=== PATIENT | female | born 1940 | race Caucasian/White ===

== ENCOUNTER → 2017-05-25 | Outpatient (CLI) | payer OTHER | LOC: FIMAGING 08:07 | PROVIDERS: ATTEND Internal Medicine | DX: Z12.31 Encounter for screening mammogram for malignant neoplasm of breast (principal) | CPT/HCPCS: G0202 ==

== ENCOUNTER → 2017-08-04 | Outpatient (CLI) | payer OTHER | LOC: FIMAGING 11:48 | PROVIDERS: ATTEND Internal Medicine | DX: R92.0 Mammographic microcalcification found on diagnostic imaging of breast (principal); Z80.3 Family history of malignant neoplasm of breast | CPT/HCPCS: G0206 ==

== ENCOUNTER → 2017-08-25 | Day surgery (SDC) | payer OTHER ==
[~2017-08-25] MED LIST: BUPIVACAINE 0.5% 10 ML SDV ONE; LIDO/EPI 1% **Not for Epidural 20 ML MDV ONE; LIDOCAINE 1% 300 MG/30 ML SDV ONE; THROMBIN (BOVINE) 5,000 UNIT VIAL TP ONE
== END | disposition home or self-care (01) ==
LOC: FIMAGING 07:14
PROVIDERS: ATTEND Surgery
PROC: 0HBT3ZX Excision of Right Breast, Percutaneous Approach, Diagnostic (ICD-10-PCS; principal; 2017-08-25)
PROC: BH00ZZZ Plain Radiography of Right Breast (ICD-10-PCS; principal; 2017-08-25)
DX: D24.1 Benign neoplasm of right breast (principal); N60.11 Diffuse cystic mastopathy of right breast; R92.0 Mammographic microcalcification found on diagnostic imaging of breast
CPT/HCPCS: G0206

== ENCOUNTER → 2018-03-23 | Outpatient (CLI) | payer OTHER | LOC: BMCIMAGING 10:18 | PROVIDERS: ATTEND Internal Medicine | DX: R92.0 Mammographic microcalcification found on diagnostic imaging of breast (principal) ==

== ENCOUNTER → 2018-05-26 | Outpatient (CLI) | payer OTHER | LOC: BMCIMAGING 13:03 | PROVIDERS: ATTEND Internal Medicine | DX: Z12.31 Encounter for screening mammogram for malignant neoplasm of breast (principal) ==

== ENCOUNTER 2018-11-28 16:35 | Inpatient (IN) | payer OTHER ==
[2018-11-28] MEDS ORDERED: NS 1,000 ML IV ONE (16:57)
--- NOTE | 2018-11-28 17:01 | EDPHY ---
H & P Stated Complaint: AMS, WEAKNESS Time Seen by Provider: 11/28/18 17:00 HPI/ROS: HPI CHIEF COMPLAINT: Acute onset of confusion. Now resolved. HISTORY OF PRESENT ILLNESS: 78-year-old female, history of AFib on Coumadin as well as aortic valve, presents emergency room with altered mental status now resolved. The patient was in [place] going to watch show with 1 of her friends and during the ride to [place] she became chilled and described as shaking with confusion. 911 EMS was called in [place] she was evaluated by [place] paramedics and the son was contacted she did not get transported to a local hospital the friend decided to take her back home. She arrived back home, where she had multiple episodes of being slumped over and minimally to unresponsive. No loss of pulse. Past Medical History: AFib on Coumadin. Cognitive decline early dementia. Hypertension, hyperlipidemia, GI bleed, anemia Past Surgical History: Aortic valve Social History: No drugs alcohol tobacco. Daughter at bedside is an ER physician. Family History: Noncontributory ROS REVIEW OF SYSTEMS: Somewhat limited due to underlying dementia. Exam Constitutional well-appearing, nontoxic triage nursing summary reviewed, vital signs reviewed, awake/alert. Eyes normal conjunctivae and sclera, EOMI, PERRLA. HENT normal inspection, atraumatic, moist mucus membranes, no epistaxis, neck supple/ no meningismus, no raccoon eyes. Respiratory clear to auscultation bilaterally, normal breath sounds, no respiratory distress, no wheezing. Cardiovascular rate normal, regular rhythm, no murmur, no edema, distal pulses normal. Gastrointestinal soft, non-tender, no rebound, no guarding, normal bowel sounds, no distension, no pulsatile mass. Genitourinary no CVA tenderness. Musculoskeletal no midline vertebral tenderness, full range of motion, no calf swelling, no tenderness of extremities, no meningismus, good pulses, neurovascularly intact. Skin pink, warm, & dry, no rash, skin atraumatic. Neurologic she is not confused here, awake, alert and oriented x 3, AAOx3, moves all 4 extremities equally, motor intact, sensory intact, CN II-XII intact , normal cerebellar, normal vision, normal speech. Psychiatric normal mood/affect. Heme/Lymph/Immune no lymphadenopathy. Differential Diagnosis: Includes but is not limited to and in no particular order: CVA intracranial bleed, stroke, TIA, dehydration, electrolyte disturbance, infection, bacteremia, UTI, pneumonia Medical Decision Making: Plan for this patient IV establishment blood draw, EKG , chest x-ray, CT scan head without contrast, troponin, UA and re-evaluate. Re-evaluation: EKG interpretation by me on record in [facility] [employer] system. Impression time of EKG 1736, AFib rate of 104 Q-waves to [address] elevation. Q-waves throughout V1 V2 V3. CT scan head without contrast negative for acute bleed called to me by Dr. Marroquin. Chest x-ray reviewed. Cardiomegaly. No focal pneumonia. Plan for admission. Patient possibly was having rigors versus TIA episode. Blood cultures have been pulled due to her having a mechanical valve. She is not febrile. She is not toxic She agrees for hospital admission. The daughter at bedside is comfortable with admission. No source of infection at this time. She does have an elevated white blood cell count. She is afebrile here nontoxic appearing Troponin noted to be positive patient does not have any chest pain. BNP slightly elevated. Chest x-ray cardiomegaly but no failure CT scan of the head is unremarkable Plan for hospital admission for observation overnight Dr. Connell Consulted. Source: Patient, Family, EMS - Personal History Current Tetanus/Diphtheria Vaccine: Unsure Tetanus Vaccine Date: 2003 - Medical/Surgical History Hx Asthma: No Hx Chronic Respiratory Disease: No Hx Diabetes: No Hx Cardiac Disease: No Hx Renal Disease: No Hx Cirrhosis: No Hx Alcoholism: No Hx HIV/AIDS: No Hx Splenectomy or Spleen Trauma: No Other PMH: med hx-artificial valve,aortic arch aneurysm initially placed stent, . surg-appy,implants-breast,aorta. DEMENTIA, AFIB - Social History Smoking Status: Former smoker Constitutional: Initial Vital Signs Temperature (C) 37.1 C 11/28/18 16:43 Heart Rate 104 H 11/28/18 16:43 Respiratory Rate 16 11/28/18 16:43 Blood Pressure 106/91 H 11/28/18 16:43 O2 Sat (%) 94 11/28/18 16:43 O2 Delivery Mode Nasal Cannula O2 (L/minute) 2 Allergies/Adverse Reactions: phenobarbital [Phenobarbital] Allergy (Verified 10/26/15 19:18) Home Medications: Medication Instructions Recorded Levothyroxine [Synthroid 100 mcg 100 mcg PO Q2D@08/04/12 (*)] Levothyroxine [Synthroid 88 mcg 88 mcg PO Q2D@08/04/12 (*)] Losartan Potassium [Cozaar 50 mg 25 mg PO DAILY 08/04/12 (*)] Nebivolol HCl [Bystolic] 1.25 mg PO DAILY 10/27/15 Estradiol [Estrace] 0.5 mg PO DAILY 11/28/18 Furosemide [Lasix 20 MG (*)] 60 mg PO DAILY 11/28/18 Memantine HCl [Namenda 10 mg] 10 mg PO BID 11/28/18 Potassium Cl [Klor-Con 20 meq (*)] 20 meq PO DAILY 11/28/18 Warfarin Sodium [Coumadin 3MG (*)] 3 mg PO SUTUTHSA@20 11/28/18 Warfarin Sodium [Coumadin 3MG (*)] 4.5 mg PO MOWEFR@20 11/28/18 Medical Decision Making - Data Points Laboratory Results: Laboratory Results 11/28/18 16:50 11/28/18 16:50 Medications Given: Estradiol (Estradiol) 0.5 mg PO DAILY [facility] Stop: 05/28/19 08:59 Last Admin: 11/29/18 14:01 Dose: 0.5 mg Piperacillin/Tazobactam/Dextrose (Zosyn 3.375 Gm (Premix)) 50 mls @ 100 mls/hr IV 0300,0900,1500,2100 [facility] Stop: 12/29/18 14:59 Last Admin: 11/29/18 20:35 Dose: 50 mls Sodium Chloride (Ns) 1,000 mls @ 75 mls/hr IV CONT [facility]VIN Stop: 05/28/19 15:44 Last Admin: 11/29/18 15:49 Dose: 1,000 mls Levothyroxine Sodium (Synthroid) 88 mcg PO Q2D@06 [facility]VIN Stop: 05/28/19 05:59 Last Admin: 11/29/18 05:42 Dose: 88 mcg Memantine (Namenda) 10 mg PO BID [facility]VIN Stop: 05/27/19 20:59 Last Admin: 11/29/18 20:35 Dose: 10 mg Warfarin Sodium (Coumadin) 3 mg PO SUTUTHSA@20 [facility]VIN Stop: 05/27/19 20:29 Last Admin: 11/28/18 21:13 Dose: 3 mg Warfarin Sodium (Coumadin) 4.5 mg PO MOWEFR@20 [facility]VIN Stop: 05/28/19 19:59 Last Admin: 11/29/18 20:35 Dose: 4.5 mg Discontinued Medications Sodium Chloride (Ns) 1,000 mls @ 0 mls/hr IV EDNOW ONE; Wide Open PRN Reason: Protocol Stop: 11/28/18 16:58 Last Admin: 11/28/18 17:00 Dose: 1,000 mls Sodium Chloride (Ns) 1,000 mls @ 75 mls/hr IV CONT MALVIN Stop: 11/29/18 09:19 Last Admin: 11/28/18 21:00 Dose: 1,000 mls Piperacillin/Tazobactam/Dextrose (Zosyn 3.375 Gm (Premix)) 50 mls @ 100 mls/hr IV ONCE ONE PRN Reason: Protocol Stop: 11/29/18 08:46 Last Admin: 11/29/18 08:50 Dose: 50 mls Point of Care Test Results: Chemistry 11/28/18 17:11 POC Troponin I 0.11 ng/mL H ng/mL (0.00-0.08) Departure - Departure Disposition: [facility] Acute Clinical Impression: Elevated troponin Altered mental status Qualifiers: Altered mental status type: transient alteration of awareness Qualified Code(s) : R40.4 - Transient alteration of awareness Condition: Fair
[2018-11-28 17:09] LABS: PLATELET COUNT 142 10^3/uL (150-400)
[2018-11-28 17:18] LABS: INR 2.72 (0.83-1.16); PROTIME(PATIENT) 28.8 SEC (12.0-15.0)
[2018-11-28] MEDS ORDERED: ACETAMINOPHEN 325 MG TAB PO PRN (19:25)
[2018-11-28] MEDS ORDERED: ONDANSETRON 4 MG/2 ML VIAL IVP PRN (19:25)
[2018-11-28] MEDS ORDERED: NS 1,000 ML IV SCH (20:00)
[2018-11-28] MEDS: MEMANTINE HCL 5 MG TAB PO SCH (21:12)
[2018-11-28] MEDS: WARFARIN SODIUM 3 MG TAB PO SCH (21:13)
--- NOTE | 2018-11-28 21:31 | GHP ---
DATE OF ADMISSION: 11/28/2018 CHIEF COMPLAINT: Acute encephalopathy, now resolved, leukocytosis. HISTORY OF PRESENT ILLNESS: An 78-year-old female with history of atrial fibrillation on Coumadin, mechanical aortic valve, presents to the ER after being altered earlier today. She was a passenger driving to [place] to watch a show with one of her friends. During the ride, she complained of being very chilled, and friend described her as shaking and confused. EMS was called in [place]. She was evaluated by paramedics. Someone was contacted. This friend decided to take her back home. When she was at home with family, she had multiple episodes of being slumped over but would arouse when shaked. She was alert to person and place but not to time. She does have mild dementia but would normally know the year. Denies fevers, sweats. No nausea, vomiting, diarrhea, dysuria. No chest pain or shortness of breath. No dizziness. No urinary incontinence. Her daughter is an ER physician at bedside giving some of the history. REVIEW OF SYSTEMS: I completed a 10-point review of systems, negative except as in HPI. PAST MEDICAL HISTORY: 1. Atrial fibrillation on Coumadin. 2. Early dementia. 3. Hypertension. 4. Hyperlipidemia. 5. Hypothyroidism. 6. History of diverticulosis. 7. Mechanical aortic valve. 8. Cervical stenosis. PAST SURGICAL HISTORY: Aortic valve replacement 2003. FAMILY HISTORY: CAD. SOCIAL HISTORY: Lives here in [place]. No illicits, alcohol, or tobacco. ALLERGIES: Phenobarb. HOME MEDICATIONS: Coumadin 4 mg daily, omega-3, Bystolic 2.5 mg daily, losartan 50 mg daily, Synthroid 188 mcg every 2 days, hydrochlorothiazide 12.5, Premarin. PHYSICAL EXAMINATION: VITAL SIGNS: Temperature 36.7, blood pressure 103/78, heart rate 90-105, respirations 16, 95% on 2 L. GENERAL: She appears fatigued , pale in no acute distress. HEENT: PERRLA. Dry mucous membranes. Oropharynx clear. No exudate or erythema. CV: Irregularly irregular rate. No murmurs, gallops, or rubs. No lower extremity edema. LUNGS: Clear. No crackles or rhonchi. NEURO: 2-12 intact. PSYCHIATRIC: She is alert and oriented to place, month, not exact date. LABS: Sodium 133, potassium 4.1, chloride 107, carbon dioxide 19, creatinine 1 , glucose 111, calcium 8.8, total bilirubin 1.5, conjugated 0.6. BNP is 1440 ( last 1170). Troponin 0.11. Lactate 2.6. Repeat 1.5. INR is 2.72. Urine: Trace protein. TEST DATA: EKG: Atrial fibrillation, inferior infarct seen on old head CT, no acute intracranial findings. IMAGING DATA: Chest x-ray is personally reviewed by me. Sternotomy wires. No overt opacity or effusion. ASSESSMENT AND PLAN: 1. Acute encephalopathy: possibly due to infection with history described as rigors and elevated WBC. Now afebrile. Normal CXR, UA. Blood culture to rule out endocarditis given mechanical valve. Will hold off on antibiotics. 2. Leukocytosis: eval as stated above. 3. Hypovolemic hyponatremia: Mildly dry on exam. Gentle IV fluids. Hold diuretics. 4. Hypothyroidism: levothyroxine. 5. Hypertension: Hold antihypertensive with soft blood pressures. 6. Aortic mechanical valve: INR is at goal. Will repeat in the morning. 7. Diet: Regular. 8. Indeterminate troponin: Elevated at 0.11. No ischemic EKG changes. Asymptomatic. Will repeat and monitor on telemetry. Can evaluate with echo in morning for WMA if trends up. 9. Deep venous thrombosis prophylaxis: Coumadin. DISPOSITION: Warrants observation admission given indeterminate troponin, warranting repeat and telemetry. /[id number]/MODL MTDD
--- NOTE | 2018-11-29 00:13 | CPEKG ---
Test Reason : OPEN Blood Pressure : / mmHG Vent. Rate : 104 BPM Atrial Rate : 000 BPM P-R Int : 144 ms QRS Dur : 096 ms QT Int : 348 ms P-R-T Axes : 000 -83 091 degrees QTc Int : 458 ms Atrial fibrillation Inferior infarct, old Probable anterior infarct, age indeterminate Confirmed by Drake Barlow ([id number]) on 11/29/2018 12:13:03 AM Referred By: Confirmed By:Drake Barlow
[2018-11-29 04:40] LABS: INR 2.6 (0.83-1.16); PROTIME(PATIENT) 27.8 SEC (12.0-15.0)
[2018-11-29 04:48] LABS: PLATELET COUNT 134 10^3/uL (150-400)
[2018-11-29] MEDS: LEVOTHYROXINE 88 MCG TAB PO SCH (05:42)
[2018-11-29] MEDS ORDERED: PIPERACILLIN/TAZO 3.375 GM/DEX 50 ML IV ONE (08:17)
[2018-11-29] MEDS: MEMANTINE HCL 5 MG TAB PO SCH ×2 (14:01→20:35)
[2018-11-29] MEDS: ESTRADIOL 0.5 MG TAB PO SCH (14:01)
--- NOTE | 2018-11-29 14:59 | ASMTCMCOM ---
CM Note CM Note Notes: Pt is a 78 yo F presented with acute encephalopathy and leukocytosis. Labs found e-coli in urine. ID consulted and PT recommending SNF. OT eval pending. D/C needs TBD at this time. CM to follow. Plan: TBD likely, SNF. Date Signed: 11/29/2018 02:58 PM Electronically Signed By:FREDA Song
[2018-11-29] MEDS ORDERED: NS 1,000 ML IV SCH (15:45)
[2018-11-29] MEDS: PIPERACILLIN/TAZO 3.375 GM/DEX 50 ML IV SCH ×2 (15:46→20:35)
--- NOTE | 2018-11-29 16:15 | ASMTCMCOM ---
CM Note CM Note Notes: CM met with pt and her daughter, Ivy. CM provided education about pt's baseline and her concerns of being discharged home. Ivy reports she manages pt's medications and is her primary caregiver but doesn't live with her. She reports at baseline pt is independent but is getting more and more forgetful and doing "strange" things around the house. Ivy reports that she found medications that pt was hiding and not taking recently and is concerned about her returning to home. Ivy reports her mom has toured [facility] in the past but did not like the assisted living portion. CM provided education about other AL in the area and referred to list in [facility] [employer] [facility]. Ivy is going to tour more facilities. CM provided education on SNF and was agreeable to referral to [facility]. CM submit referral. Plan: [facility] SNF. Date Signed: 11/29/2018 04:14 PM Electronically Signed By:FREDA Song
--- NOTE | 2018-11-29 16:24 | HOSPPROG ---
Hospitalist Progress Note Assessment/Plan: E coli bacteremia-source unclear at this point. I reviewed the chest x-ray which shows no explanation for this finding. She does have a substantial leukocytosis which worsened over night. Vitals remained stable and exam is reassuring. I discussed the case with the infectious disease physician who recommended continuing Zosyn and obtaining CT of the abdomen and pelvis. Urinalysis shows no obvious urinary tract infection. -monitor cultures -continue Zosyn -CT abdomen and pelvis pending -infectious Disease consult. I appreciate the help Acute metabolic encephalopathy- resolved. Etiology may have been secondary to dehydration, hyponatremia or infection. Reviewed the CT of her head which shows no acute intracranial abnormality. Elevated troponin- troponin peaked at 0.13 and is now down trending. No evidence of ischemia on EKG. Continue to monitor on telemetry Atrial fibrillation on Coumadin- INR this morning is 2.6. I reviewed her telemetry and I find no evidence of AFib with RVR. She takes Bystolic normally at home but this is being held due to low pressures. Restart as pressures normalize or as rate climbs -continue Coumadin with goal INR 2-3 -monitor on telemetry -restart Bystolic as needed Hypertension- takes losartan and Bystolic at home but this is being held due to her mild hypotension. Hypothyroid- takes Synthroid 188 mcg. Continue while here. Mechanical aortic valve- on Coumadin. INR 2.6 Prophylaxis-SCDs Coumadin Fluids-intravenous saline Electrolytes-within normal limits Nutrition-regular diet Code status-full code Dispo-will need to change for inpatient for E coli bacteremia Subjective: Feels much better this morning. Denies any dysuria abdominal pain diarrhea or other symptoms. Objective: Vital Signs Temp Pulse Resp BP Pulse Ox 37.8 C 86 17 108/56 L 97 11/29/18 15:50 11/29/18 15:50 11/29/18 15:50 11/29/18 15:50 11/29/18 15:50 Microbiology 11/28/18 19:33 Blood Panel (PCR) - Final Blood Escherichia Coli 11/28/18 20:00 Respiratory Panel (PCR) - Final Nasal, Sinus - Anaerobic Tube/Swab No Organism Detected By Pcr Laboratory Results 11/29/18 04:04 11/29/18 04:04 11/28/18 11/29/18 11/30/18 05:59 05:59 05:59 Intake Total 1250 Output Total 200 Balance 1050 PT 27.8 SEC (12.0-15.0) H 11/29/18 04:04 INR 2.60 (0.83-1.16) H 11/29/18 04:04 - Time Spent With Patient Time Spent with Patient: greater than 35 minutes Time Spent with Patient: Greater than 35 minutes spent on this patients care, greater than 50% of time spent counseling, educating, and coordinating care regarding the above mentioned plan. - Physical Exam Constitutional: no apparent distress, appears nourished, not in pain Eyes: PERRL, anicteric sclera, EOMI Ears, Nose, Mouth, Throat: moist mucous membranes, hearing normal, ears appear normal, no oral mucosal ulcers Cardiovascular: regular rate and rhythym, no murmur, rub, or gallop Respiratory: no respiratory distress, no rales or rhonchi, clear to auscultation Gastrointestinal: normoactive bowel sounds, soft, non-tender abdomen, no palpable masses Genitourinary: no bladder fullness, no bladder tenderness, no renal bruits Skin: no rashes or abrasions, no fluctuance, no induration Musculoskeletal: full muscle strength, no muscle tenderness, normal joint ROM Neurologic: AAOx3, sensation intact bilaterally Psychiatric: interacting appropriately, not anxious, not encephalopathic, thought process linear Lymph, Heme, Immunologic: no cervical LAD, no supraclavicular LAD ICD10 Worksheet Patient Problems: Problems Problem Status Onset Altered mental status Acute Elevated troponin Acute GI bleed Acute Warfarin-induced coagulopathy Acute Aortic valve replaced Chronic Atrial fibrillation Chronic
--- NOTE | 2018-11-29 16:33 | GCON ---
REFERRING PHYSICIAN: Jose Alejandro Quinones MD REASON FOR REFERRAL: E coli sepsis. HISTORY OF PRESENT ILLNESS: Patient is an 78-year-old female in a normal state of good health on the day of admission 11/28/18, when she was traveling with friends from [place] to [place] to see an arts presentation. She became ill suddenly on her way to the presentation and went instead to [facility] Emergency Room. Patient reported sudden onset of chills and confusion. Patient was w orked up in the emergency room and found to have a significant leukocytosis to 15,000. She was start ed empirically on Zosyn monotherapy. Blood cultures drawn in the ER are growing 2/2 sets positive fo r E coli, identified by PCR panel. Patient's urinary tract workup shows no pyuria. She has no abdom inal pain. Currently, she is resting comfortably in her hospital room. She states she feels back to normal. Denies any gastrointestinal complaints. No nausea or vomiting. Denies any urinary complai nts. States that in the days prior to her admission, she was feeling fine. PAST MEDICAL HISTORY: 1. Atrial fibrillation. 2. Early dementia. 3. Hypertension. 4. Hyperlipidemia. 5. Hypothyroidism. 6. Diverticulosis. 7. Cervical stenosis. PAST SURGICAL HISTORY: Status post aortic valve replacement with mechanical valve. ANTIBIOTICS: Zosyn. ALLERGIES: Patient is allergic to phenobarbital. SOCIAL HISTORY: Patient lives in [place]. No significant tobacco, alcohol, or drug use. FAMILY HISTORY: Reviewed but noncontributory. REVIEW OF SYSTEMS: Other than that detailed above in the History of Present Illness, a comprehensive 10-system review is negative. PHYSICAL EXAMINATION: VITAL SIGNS: Temperature maximum is 37.5, temperature current 36.7, heart rat e is 66, respiratory rate is 12, blood pressure is 102/58. GENERAL: Patient is a well-formed, well- nourished, elderly female, in no acute distress. She is not toxic in appearance. She is alert and o riented x3. She has a pleasant demeanor. HEENT: Normocephalic for age. Atraumatic. No scleral ic terus. No oral lesion or drainage from the nares. Eyes, lids and conjunctivae are within normal merlos its. Pupils are equal and round bilaterally. NECK: Supple. No meningismus. LUNGS: Clear to ausc ultation bilaterally with good effort. HEART: Regular rate and rhythm. Mechanical click. ABDOMEN: Soft, nontender, no masses. SKIN: Warm and dry to the touch. No rash or lesions seen. MUSCULOSK ELETAL: No muscle belly tenderness is noted. No joint line effusion or arthritis seen. NEURO: Milling Machine Operator nial nerves 2-12 seem to be intact. Peripheral sensation seems intact in extremities. LABORATORY DATA: Patient has a CBC dated 11/29/18, shows a white blood cell count of 23.9, hemoglobi n of 12.7, hematocrit of 38.5, and a platelet count of 134, differential is left-shifted with 89% seg mented neutrophils. Serum chemistries on 11/29/18, show sodium of 135, potassium 3.8, chloride of 108, bicarbonate of 23, BUN of 20, and creatinine 0.9. AST is 31, ALT is 30. Urinalysis shows trace protein, trace ketones, 0-1 white blood cell per high-power field. MICROBIOLOGIC DATA: Patient has blood cultures dated 11/28/18, 2/2 sets growing a gram-negative michael, identified by [facility]. BC ID panel is E coli. RADIOLOGIC DATA: Patient has a head CT dated 11/28/18, which shows no acute intracranial findings. This was done without contrast. Chest x-ray from 11/28/18, shows no acute findings in the chest. ASSESSMENT: Escherichia coli bacteremia unclear source. Due to the patient not having any evidence on her urinalysis of inflammation, I suggest that we do imaging of her abdomen and pelvis despite the fact she has no localized symptoms. Another concern would be an odd gram-negative endocarditis on h er artificial valve. Going against this is the fact the valve is over 15 years old. In any event, e chocardiogram would probably get a lot of artifact and shading from the mechanical valve, and it is u nclear whether this would be helpful. If nothing is found in the abdominal and pelvic CT, I think we should look at this. Should redraw blood cultures tomorrow to document clearance. At present, we w ill continue on the empiric Zosyn monotherapy and adjust given sensitivity panels forthcoming. PLAN: 1. Continue Zosyn at present dose. 2. Follow clinical course. Follow fever curve. 3. Follow up on blood culture confirmation and sensitivity panel. 4. CT abdomen and pelvis. /[id number]/MODL
[2018-11-29] MEDS ORDERED: IOPAMIDOL (ISOVUE 370) 100 ML BTL IV ONE (17:14)
[2018-11-29] MEDS ORDERED: PIPERACILLIN/TAZO 2.25 GM/DEX 50 ML IV SCH (18:00)
[2018-11-29] MEDS: WARFARIN SODIUM 3 MG TAB PO SCH (20:35)
[2018-11-30] MEDS: PIPERACILLIN/TAZO 3.375 GM/DEX 50 ML IV SCH ×4 (03:03→21:17)
[2018-11-30] MEDS: LEVOTHYROXINE 88 MCG TAB PO SCH (03:07)
[2018-11-30 05:03] LABS: PLATELET COUNT 102 10^3/uL (150-400)
[2018-11-30] MEDS: LEVOTHYROXINE 100 MCG TAB PO SCH (05:35)
--- NOTE | 2018-11-30 06:40 | PDMN ---
Medical Necessity Medical necessity: Pt meets IP criteria as of 11/29/2017 per and MCG M-160 ( Sepsis and other febrile illness, without focal infection); los > 2 mn for ongoing tx and management of E. Coli Bacteremia.
[2018-11-30] MEDS ORDERED: POTASSIUM CL 20 MEQ TAB PO ONE (08:37)
[2018-11-30] MEDS: MEMANTINE HCL 5 MG TAB PO SCH ×2 (09:28→21:16)
[2018-11-30] MEDS: ESTRADIOL 0.5 MG TAB PO SCH (09:28)
--- NOTE | 2018-11-30 13:34 | HOSPPROG ---
Hospitalist Progress Note Assessment/Plan: E coli bacteremia-source unclear at this point. CT A/P reviewed by myself with no source or abnormality. I discussed with ID today, who wants a repeat culture , then plan to await culture data and likely julien. -monitor cultures -continue Zosyn -infectious Disease consult. I appreciate the help Acute metabolic encephalopathy- resolved. Etiology may have been secondary to dehydration, hyponatremia or infection. Reviewed the CT of her head which shows no acute intracranial abnormality. Elevated troponin- troponin peaked at 0.13 and is now down trending. No evidence of ischemia on EKG. Continue to monitor on telemetry Atrial fibrillation on Coumadin- INR this morning is 2.6. I reviewed her telemetry and I find no evidence of AFib with RVR. She takes Bystolic normally at home but this is being held due to low pressures. Restart as pressures normalize or as rate climbs -continue Coumadin with goal INR 2-3 -monitor on telemetry -restart Bystolic as needed Hypertension- takes losartan and Bystolic at home but this is being held due to her mild hypotension. Hypothyroid- takes Synthroid 188 mcg. Continue while here. Mechanical aortic valve- on Coumadin. INR 2.6 Prophylaxis-SCDs Coumadin Fluids-intravenous saline Electrolytes-within normal limits Nutrition-regular diet Code status-full code Dispo-inpatient for e coli bacteremia. May be able to dc in next 1-2 days depending on culture data. Subjective: feels fine today. not much appetite. otherwise no nv, fevers chills or other symptoms. Objective: Vital Signs Temp Pulse Resp BP Pulse Ox 37.4 C 77 18 113/67 93 11/30/18 12:00 11/30/18 12:00 11/30/18 12:00 11/30/18 12:00 11/30/18 12:00 Laboratory Results 11/30/18 03:08 11/30/18 03:08 11/29/18 11/30/18 12/01/18 05:59 05:59 05:59 Intake Total 2725 Output Total 801 Balance 1924 PT 27.8 SEC (12.0-15.0) H 11/29/18 04:04 INR 2.60 (0.83-1.16) H 11/29/18 04:04 - Physical Exam Constitutional: no apparent distress, appears nourished, not in pain Eyes: PERRL, anicteric sclera, EOMI Ears, Nose, Mouth, Throat: moist mucous membranes, hearing normal, ears appear normal, no oral mucosal ulcers Cardiovascular: regular rate and rhythym, no murmur, rub, or gallop Respiratory: no respiratory distress, no rales or rhonchi, clear to auscultation Gastrointestinal: normoactive bowel sounds, soft, non-tender abdomen, no palpable masses Genitourinary: no bladder fullness, no bladder tenderness, no renal bruits Skin: no rashes or abrasions, no fluctuance, no induration Musculoskeletal: full muscle strength, no muscle tenderness, normal joint ROM Neurologic: AAOx3, sensation intact bilaterally Psychiatric: interacting appropriately, not anxious, not encephalopathic, thought process linear Lymph, Heme, Immunologic: no cervical LAD, no supraclavicular LAD ICD10 Worksheet Patient Problems: Problems Problem Status Onset Altered mental status Acute Elevated troponin Acute GI bleed Acute Warfarin-induced coagulopathy Acute Aortic valve replaced Chronic Atrial fibrillation Chronic
--- NOTE | 2018-11-30 14:27 | PCMIDPN ---
Assessment/Plan: # E coli bacteremia, unclear source, improved on Zosyn. WBC improved. CT negative. UA negative --awaiting sensi, hopeful for ceftriaxone to complete therapy. Discussed FQ but probably not worth risk in this instance --due to presence of prosthetic valve would repeat blood cx in this instance --plan 10 days of therapy total, 12/08/18 stop date --discussed risk benefits of PICC line, contemplated trying PIVs at SNF but left open; re-address tomorrow meds Zosyn 3.375gm IV q6h #2 Microbiology 11/28/18 19:33 Blood Blood Panel (PCR) - Final Escherichia Coli 11/28/18 19:33 Blood Blood Culture - Preliminary 11/28/18 19:33 Blood Gram Neg Shay Lactose Com Writer Subjective: feeling much better but still fairly weak Daughter at bedside, ER doctor Objective: Vital Signs Temp Pulse Resp BP Pulse Ox 37.4 C 77 18 113/67 93 11/30/18 12:00 11/30/18 12:00 11/30/18 12:00 11/30/18 12:00 11/30/18 12:00 Laboratory Results 11/30/18 03:08 11/30/18 03:08 11/29/18 11/30/18 12/01/18 05:59 05:59 05:59 Intake Total 2725 Output Total 801 Balance 1924 - Physical Exam General Appearance: alert, no apparent distress, other (appears younger than stated age) EENT: No thrush Respiratory: lungs clear, No accessory muscle use Neck: supple Cardiac/Chest: regular rate, rhythm Extremities: No pedal edema Abdomen: normal bowel sounds, non-tender, soft Skin: No rash Neuro/Psych: alert, normal mood/affect, oriented x 3 - Time Spent With Patient Time Spent with Patient: greater than 35 minutes (reviewed risk benefits IV abx , FQ, PICC line placement) Time Spent with Patient: Greater than 35 minutes spent on this patients care, greater than 50% of time spent counseling, educating, and coordinating care regarding the above mentioned plan. ICD10 Worksheet Patient Problems: Problems Problem Status Onset Altered mental status Acute Elevated troponin Acute GI bleed Acute Warfarin-induced coagulopathy Acute Aortic valve replaced Chronic Atrial fibrillation Chronic
[2018-11-30] MEDS: WARFARIN SODIUM 3 MG TAB PO SCH (21:17)
[2018-12-01] MEDS: LEVOTHYROXINE 88 MCG TAB PO SCH (03:25)
[2018-12-01] MEDS: PIPERACILLIN/TAZO 3.375 GM/DEX 50 ML IV SCH ×2 (03:25→08:23)
[2018-12-01 04:38] LABS: PLATELET COUNT 102 10^3/uL (150-400)
[2018-12-01] MEDS: ESTRADIOL 0.5 MG TAB PO SCH (08:16)
[2018-12-01] MEDS: MEMANTINE HCL 5 MG TAB PO SCH ×2 (08:16→20:33)
--- NOTE | 2018-12-01 09:10 | PCMIDPN ---
Assessment/Plan: # E coli bacteremia, unclear source. CT negative. UA negative. Patient better today, WBC trending down --due to presence of prosthetic valve, blood cultures were repeated --ceftriaxone plan 10 days of therapy total, 12/08/18 stop date. If leaves half-way facility prior to completion of antibiotics, patient will complete therapy in infusion center. Feel FQ therapy to high risk in this patient --[facility] is okay utilizing peripheral IV. Long discussion with patient and her daughter (over the phone) regarding not safe to send patient home alone ( she normally lives independently alone), therefore only option is half-way facility. Patient remains very reluctant with this option but daughter will continue to discuss with patient. I coordinated care with physical therapy and Case Management. Daughter will be on the floor between noon and 1 --agree w INR check in AM meds Zosyn 3.375gm IV q6h #3 coumadin Microbiology 11/28/18 Blood cx (2/): Escherichia Coli only R to amp, amp/sulb 11/30/18 blood cultures (2) pending Subjective: Patient describes generalized weakness, no diarrhea, abdominal pain or other specific pain Objective: Vital Signs Temp Pulse Resp BP Pulse Ox 37.0 C 84 19 133/79 H 92 12/01/18 07:29 12/01/18 07:29 12/01/18 07:29 12/01/18 07:29 12/01/18 07:29 Laboratory Results 12/01/18 03:05 12/01/18 03:05 11/30/18 12/01/18 12/02/18 05:59 05:59 05:59 Intake Total 2725 600 Output Total 801 550 100 Balance 1924 50 -100 - Physical Exam General Appearance: alert, no apparent distress Respiratory: lungs clear, No accessory muscle use Neck: supple Cardiac/Chest: regular rate, rhythm, systolic murmur (faint w mechanical click) Abdomen: normal bowel sounds, non-tender, soft, No distended Skin: pallor, No rash Neuro/Psych: alert, normal mood/affect - Line/s PIV Lines: other (Right forearm), No drainage, No erythema - Time Spent With Patient Time Spent with Patient: greater than 35 minutes Time Spent with Patient: Greater than 35 minutes spent on this patients care, greater than 50% of time spent counseling, educating, and coordinating care regarding the above mentioned plan. ICD10 Worksheet Patient Problems: Problems Problem Status Onset Altered mental status Acute Elevated troponin Acute GI bleed Acute Warfarin-induced coagulopathy Acute Aortic valve replaced Chronic Atrial fibrillation Chronic
--- NOTE | 2018-12-01 09:26 | PDIAF ---
- Diagnosis Diagnosis: E coli bactermia Code Status: Full Code - Medication Management Manager [facility] Antibiotics: ceftriaxone 1gm IV daily [facility] Antibiotic Stop Date: 12/08/18 Discharge Medications: electronically signed and located in the Home Medication List. PICC Care - Routine: N/A (PIV per protocol) - Orders Isolation Type: None - Labs/Radiology CBC w/diff Date: 12/06/18 CMP Date: 12/06/18 - Follow Up Care Current Providers and Referrals: Patient,NotPresent [Unknown] - As per Instructions
[2018-12-01] MEDS: NEBIVOLOL HCL 5 MG TAB PO SCH (10:39)
[2018-12-01] MEDS ORDERED: FUROSEMIDE 20 MG TAB PO ONE (13:55)
--- NOTE | 2018-12-01 13:55 | HOSPPROG ---
Hospitalist Progress Note Assessment/Plan: E coli bacteremia-source unclear at this point. CT A/P reviewed by myself with no source or abnormality. -ID following -BCX 11/28: Ecoli -BCX 11/30: NGTD, pending -Zosyn changed to Rocephin, will need abx through Dec 08 Cough: -one time Lasix today Acute metabolic encephalopathy- resolved. Etiology may have been secondary to dehydration, hyponatremia or infection. Reviewed the CT of her head which shows no acute intracranial abnormality. Elevated troponin- troponin peaked at 0.13 and is now down trending. No evidence of ischemia on EKG. Continue to monitor on telemetry Atrial fibrillation on Coumadin -Went into Afib this morning -will restart Bystolic -Cont Coumadin, recheck INR in a.m Hypertension- -cont to hold Losartan -cont Bystolic Hypothyroid- takes Synthroid 188 mcg. Continue while here. Mechanical aortic valve- on Coumadin. INR 2.6 Prophylaxis-SCDs Coumadin Fluids-intravenous saline Electrolytes-within normal limits Nutrition-regular diet Code status-full code Dispo-inpatient for e coli bacteremia. consider d/c tomorrow. Subjective: says she feels something is funny in her, doesnt feel herself. Was not aware that she had gone into afib. afebrile. Some cough Objective: Vital Signs Temp Pulse Resp BP Pulse Ox 36.4 C 83 20 135/82 H 95 12/01/18 11:07 12/01/18 11:07 12/01/18 11:07 12/01/18 11:07 12/01/18 11:07 Laboratory Results 12/01/18 03:05 12/01/18 03:05 11/30/18 12/01/18 12/02/18 05:59 05:59 05:59 Intake Total 2725 600 Output Total 801 550 100 Balance 1924 50 -100 PT 27.8 SEC (12.0-15.0) H 11/29/18 04:04 INR 2.60 (0.83-1.16) H 11/29/18 04:04 - Physical Exam Constitutional: no apparent distress Eyes: PERRL, EOMI Ears, Nose, Mouth, Throat: moist mucous membranes, hearing normal Cardiovascular: regular rate and rhythym Respiratory: no respiratory distress, reduced air movement Gastrointestinal: normoactive bowel sounds, soft, non-tender abdomen Skin: warm Neurologic: AAOx3 Psychiatric: interacting appropriately, not anxious, not encephalopathic Lymph, Heme, Immunologic: No petechiae ICD10 Worksheet Patient Problems: Problems Problem Status Onset Altered mental status Acute Elevated troponin Acute GI bleed Acute Warfarin-induced coagulopathy Acute Aortic valve replaced Chronic Atrial fibrillation Chronic
--- NOTE | 2018-12-01 15:11 | ASMTCMCOM ---
CM Note CM Note Notes: CM spoke to Dr. Rubalcava regarding d/c POC. Pt is agreeable to going to SNF. CM notified [facility] to start getting auth. Pt will d/c with peripheral IV and continue ivabx until 12/08. [facility] is ok w/ this. CM met w/ pts daughter and daughter is onboard w/ d/c plan. CM to follow. Plan: [facility] Date Signed: 12/01/2018 03:10 PM Electronically Signed By:FREDA Aguilar
[2018-12-01] MEDS: ONDANSETRON DISINTEGRATING 4 MG TAB PO PRN (17:02)
[2018-12-01] MEDS: WARFARIN SODIUM 3 MG TAB PO SCH (20:33)
[2018-12-02 05:40] LABS: INR 3.24 (0.83-1.16); PROTIME(PATIENT) 32.9 SEC (12.0-15.0)
[2018-12-02 05:44] LABS: PLATELET COUNT 108 10^3/uL (150-400)
[2018-12-02] MEDS: LEVOTHYROXINE 100 MCG TAB PO SCH (05:46)
[2018-12-02] MEDS: NEBIVOLOL HCL 5 MG TAB PO SCH (09:10)
[2018-12-02] MEDS: MEMANTINE HCL 5 MG TAB PO SCH ×2 (09:10→20:52)
[2018-12-02] MEDS: ESTRADIOL 0.5 MG TAB PO SCH (09:14)
[2018-12-02] MEDS: ONDANSETRON DISINTEGRATING 4 MG TAB PO PRN ×2 (10:07→20:54)
--- NOTE | 2018-12-02 11:55 | HOSPPROG ---
Hospitalist Progress Note Assessment/Plan: E coli bacteremia-source unclear at this point. -CT A/P reviewed with no source or abnormality. -ID following -BCX 11/28: Ecoli -BCX 11/30: NGTD -Zosyn changed to Rocephin, will need abx through Dec 08 through PIV Cough: resolved Acute metabolic encephalopathy- resolved. Etiology may have been secondary to dehydration, hyponatremia or infection. Reviewed the CT of her head which shows no acute intracranial abnormality. Elevated troponin- troponin peaked at 0.13. No evidence of ischemia on EKG. Continue to monitor on telemetry Atrial fibrillation on Coumadin -Went into Afib 12/02. She likely is in and out of Afib -cont Bystolic -Cont Coumadin, recheck INR in a.m Hypertension- -cont to hold Losartan -cont Bystolic Hypothyroid- takes Synthroid 188 mcg. Continue while here. Mechanical aortic valve- on Coumadin. INR 3.24, can be rechecked tomorrow -She has been stable on her Coumadin regimen for quite some time Prophylaxis-SCDs Coumadin Fluids-intravenous saline Electrolytes-within normal limits Nutrition-regular diet Code status-full code Dispo-inpatient for e coli bacteremia. consider d/c today vs tomorrow, placement is pending Subjective: feels better. awaiting placement. tele reviewed, still in afib Objective: Vital Signs Temp Pulse Resp BP Pulse Ox 36.8 C 88 18 118/69 91 L 12/02/18 11:25 12/02/18 11:25 12/02/18 11:25 12/02/18 11:25 12/02/18 11:25 Laboratory Results 12/02/18 05:15 12/02/18 05:15 12/01/18 12/02/18 12/03/18 05:59 05:59 05:59 Intake Total 600 1200 480 Output Total 550 100 Balance 50 1100 480 PT 32.9 SEC (12.0-15.0) H 12/02/18 05:15 INR 3.24 (0.83-1.16) H 12/02/18 05:15 - Physical Exam Constitutional: no apparent distress Eyes: PERRL Ears, Nose, Mouth, Throat: moist mucous membranes, hearing normal Cardiovascular: irregularly irregular, No edema Respiratory: no respiratory distress, no rales or rhonchi, clear to auscultation Gastrointestinal: normoactive bowel sounds, soft, non-tender abdomen Skin: warm Neurologic: AAOx3 Psychiatric: interacting appropriately, not anxious, not encephalopathic Lymph, Heme, Immunologic: No petechiae ICD10 Worksheet Patient Problems: Problems Problem Status Onset Altered mental status Acute Elevated troponin Acute GI bleed Acute Warfarin-induced coagulopathy Acute Aortic valve replaced Chronic Atrial fibrillation Chronic
[2018-12-02] MEDS: WARFARIN SODIUM 3 MG TAB PO SCH (20:52)
[2018-12-03 04:47] LABS: INR 3.72 (0.83-1.16); PROTIME(PATIENT) 36.5 SEC (12.0-15.0)
[2018-12-03] MEDS: LEVOTHYROXINE 88 MCG TAB PO SCH (05:47)
[2018-12-03] MEDS: ESTRADIOL 0.5 MG TAB PO SCH (10:23)
[2018-12-03] MEDS: NEBIVOLOL HCL 5 MG TAB PO SCH (10:23)
[2018-12-03] MEDS: MEMANTINE HCL 5 MG TAB PO SCH ×2 (10:25→20:17)
--- NOTE | 2018-12-03 13:06 | HOSPPROG ---
Hospitalist Progress Note Assessment/Plan: E coli bacteremia-source unclear at this point. -CT A/P reviewed with no source or abnormality. -ID following -BCX 11/28: Ecoli -BCX 11/30: NGTD -Zosyn changed to Rocephin, will need abx through Dec 08 through PIV Cough: resolved Acute metabolic encephalopathy- resolved. Etiology may have been secondary to dehydration, hyponatremia or infection. Reviewed the CT of her head which shows no acute intracranial abnormality. Elevated troponin- troponin peaked at 0.13. No evidence of ischemia on EKG. Continue to monitor on telemetry Atrial fibrillation on Coumadin -Went into Afib 12/02. She likely is in and out of Afib -cont Bystolic -Cont Coumadin, pharmacy dosing, slight elevation of INR noted Hypertension- -cont to hold Losartan -cont Bystolic Hypothyroid- takes Synthroid 188 mcg. Continue while here. Mechanical aortic valve- on Coumadin. INR 3.24, can be rechecked tomorrow -She has been stable on her Coumadin regimen for quite some time Prophylaxis-SCDs Coumadin Fluids-intravenous saline Electrolytes-within normal limits Nutrition-regular diet Code status-full code Dispo-inpatient for e coli bacteremia. consider d/c today vs tomorrow, placement is pending. D/W nursing, CM, pharmacy Subjective: feels better. awaiting placement Objective: Vital Signs Temp Pulse Resp BP Pulse Ox 36.6 C 88 18 116/69 93 12/03/18 12:00 12/03/18 12:00 12/03/18 12:00 12/03/18 12:00 12/03/18 12:00 Laboratory Results 12/02/18 05:15 12/02/18 05:15 12/02/18 12/03/18 12/04/18 05:59 05:59 05:59 Intake Total 1200 1360 Output Total 100 Balance 1100 1360 PT 36.5 SEC (12.0-15.0) H 12/03/18 03:10 INR 3.72 (0.83-1.16) H 12/03/18 03:10 - Physical Exam Constitutional: no apparent distress Eyes: PERRL Ears, Nose, Mouth, Throat: moist mucous membranes, hearing normal Cardiovascular: regular rate and rhythym, No edema Respiratory: no respiratory distress, no rales or rhonchi, clear to auscultation Gastrointestinal: normoactive bowel sounds, No guarding, No distension Skin: warm Neurologic: AAOx3 Psychiatric: interacting appropriately, not anxious, not encephalopathic Lymph, Heme, Immunologic: No petechiae ICD10 Worksheet Patient Problems: Problems Problem Status Onset Altered mental status Acute Elevated troponin Acute GI bleed Acute Warfarin-induced coagulopathy Acute Aortic valve replaced Chronic Atrial fibrillation Chronic
--- NOTE | 2018-12-03 16:35 | ASMTCMCOM ---
CM Note CM Note Notes: Pts case discussed in tx rounds. Updates sent to [facility]. [facility] is still in the process of getting auth from [facility]. Laxmi from called [facility] to see if they could expedite process and left a msg. CM left a msg with [facility] as well. The number is [phone]. CM to follow. Plan: [facility] SN[facility] Date Signed: 12/03/2018 04:34 PM Electronically Signed By:FREDA Aguilar
[2018-12-04 04:50] LABS: INR 3.18 (0.83-1.16); PROTIME(PATIENT) 32.4 SEC (12.0-15.0)
[2018-12-04] MEDS: LEVOTHYROXINE 100 MCG TAB PO SCH (06:09)
[2018-12-04] MEDS: ESTRADIOL 0.5 MG TAB PO SCH (08:10)
[2018-12-04] MEDS: NEBIVOLOL HCL 5 MG TAB PO SCH (08:10)
[2018-12-04] MEDS: MEMANTINE HCL 5 MG TAB PO SCH ×2 (08:11→20:10)
--- NOTE | 2018-12-04 11:36 | HOSPPROG ---
Hospitalist Progress Note Assessment/Plan: E coli bacteremia - source unclear at this point, possibly related to bioprosthetic valve. CT A/P reviewed with no source or abnormality. -ID following -BCX 11/28: Ecoli -BCX 11/30: NGTD -Zosyn changed to Rocephin, will need abx through Dec 08 through PIV Metabolic encephalopathy- resolved. CT head neg. Etiology may have been secondary to dehydration, hyponatremia or infection. Elevated troponin- troponin peaked at 0.13. No evidence of ischemia on EKG. -Continue to monitor on telemetry Atrial fibrillation on Coumadin - Went into Afib 12/02. She likely is in and out of Afib -cont Bystolic -Cont Coumadin, pharmacy dosing, slight elevation of INR noted Hypertension - losartan has been held -cont bystolic Hypothyroid- takes Synthroid 188 mcg. Continue while here. Mechanical aortic valve- on Coumadin. INR 3.18 -lasix has been held, consider resuming at lower dose upon dc Prophylaxis-SCDs Coumadin Nutrition-regular diet Code status-full code Dispo- - cont inpt, she is medically clear for d/c to SNF on 12/04, but insurance has not authorized. Subjective: Pt feels ok, no complaints. No fevers/chills. Taking po well. Objective: Vital Signs Temp Pulse Resp BP Pulse Ox 36.6 C 74 19 117/72 94 12/04/18 11:13 12/04/18 11:13 12/04/18 11:13 12/04/18 11:13 12/04/18 11:13 Laboratory Results 12/02/18 05:15 12/02/18 05:15 12/03/18 12/04/18 12/05/18 05:59 05:59 05:59 Intake Total 1360 1075 250 Balance 1360 1075 250 PT 32.4 SEC (12.0-15.0) H 12/04/18 04:22 INR 3.18 (0.83-1.16) H 12/04/18 04:22 - Physical Exam Constitutional: no apparent distress Eyes: PERRL Ears, Nose, Mouth, Throat: moist mucous membranes Cardiovascular: regular rate and rhythym Respiratory: no respiratory distress, clear to auscultation Gastrointestinal: normoactive bowel sounds, soft, non-tender abdomen Skin: warm Musculoskeletal: full muscle strength Neurologic: AAOx3 Psychiatric: interacting appropriately ICD10 Worksheet Patient Problems: Problems Problem Status Onset Altered mental status Acute Elevated troponin Acute GI bleed Acute Warfarin-induced coagulopathy Acute Aortic valve replaced Chronic Atrial fibrillation Chronic
[2018-12-04] MEDS: WARFARIN SODIUM 3 MG TAB PO SCH (20:10)
[2018-12-05 04:29] LABS: INR 2.32 (0.83-1.16); PROTIME(PATIENT) 25.5 SEC (12.0-15.0)
[2018-12-05] MEDS: LEVOTHYROXINE 88 MCG TAB PO SCH (05:55)
[2018-12-05] MEDS: FUROSEMIDE 20 MG TAB PO SCH (09:49)
[2018-12-05] MEDS: ESTRADIOL 0.5 MG TAB PO SCH (09:49)
[2018-12-05] MEDS: NEBIVOLOL HCL 5 MG TAB PO SCH (09:50)
[2018-12-05] MEDS: MEMANTINE HCL 5 MG TAB PO SCH ×2 (09:50→20:09)
--- NOTE | 2018-12-05 09:53 | HOSPPROG ---
Hospitalist Progress Note Assessment/Plan: E coli bacteremia - source unclear, possibly related to bioprosthetic valve. CT A/P reviewed with no source or abnormality. -ID following -BCX 11/28: Ecoli -BCX 11/30: NGTD -Zosyn changed to Rocephin, will need abx through Dec 08 through PIV Metabolic encephalopathy- resolved. CT head neg. Etiology may have been secondary to dehydration, hyponatremia or infection. -note h/o dementia, seems at baseline Elevated troponin- troponin peaked at 0.13. No evidence of ischemia on EKG. -Continue to monitor on telemetry Atrial fibrillation on Coumadin - Went into Afib 12/02. She likely is in and out of Afib -cont Bystolic -Cont Coumadin, pharmacy dosing Hypertension - losartan has been held -cont bystolic Hypothyroid- takes Synthroid 188 mcg. Continue while here. Mechanical aortic valve- on Coumadin. -resume lasix at lower dose and monitor Prophylaxis-SCDs Coumadin Nutrition-regular diet Code status-full code Dispo- - cont inpt, she has been medically clear for d/c to SNF since 12/04, but insurance has not authorized. Subjective: Pt feels well. No complaints. Denies CP or SOB. No fevers. Taking po well. Objective: Vital Signs Temp Pulse Resp BP Pulse Ox 36.4 C 70 16 146/72 H 96 12/05/18 08:59 12/05/18 08:59 12/05/18 08:59 12/05/18 08:59 12/05/18 08:59 Laboratory Results 12/02/18 05:15 12/02/18 05:15 12/04/18 12/05/18 12/06/18 05:59 05:59 05:59 Intake Total 1075 1250 Balance 1075 1250 PT 25.5 SEC (12.0-15.0) H 12/05/18 03:26 INR 2.32 (0.83-1.16) H 12/05/18 03:26 - Physical Exam Constitutional: no apparent distress Eyes: PERRL Ears, Nose, Mouth, Throat: moist mucous membranes Cardiovascular: regular rate and rhythym Respiratory: no respiratory distress, clear to auscultation Gastrointestinal: normoactive bowel sounds Skin: warm Musculoskeletal: full muscle strength Neurologic: AAOx3 Psychiatric: interacting appropriately ICD10 Worksheet Patient Problems: Problems Problem Status Onset Altered mental status Acute Elevated troponin Acute GI bleed Acute Warfarin-induced coagulopathy Acute Aortic valve replaced Chronic Atrial fibrillation Chronic
[2018-12-05] MEDS: DOCOSANOL 2 GM CREAM TP SCH (20:09)
[2018-12-05] MEDS: WARFARIN SODIUM 3 MG TAB PO SCH (20:09)
[2018-12-06 05:15] LABS: INR 2.1 (0.83-1.16); PROTIME(PATIENT) 23.6 SEC (12.0-15.0)
[2018-12-06] MEDS: LEVOTHYROXINE 100 MCG TAB PO SCH (06:23)
[2018-12-06] MEDS: ESTRADIOL 0.5 MG TAB PO SCH (08:44)
[2018-12-06] MEDS: NEBIVOLOL HCL 5 MG TAB PO SCH (08:44)
[2018-12-06] MEDS: MEMANTINE HCL 5 MG TAB PO SCH ×2 (08:47→20:20)
[2018-12-06] MEDS: FUROSEMIDE 20 MG TAB PO SCH (08:48)
[2018-12-06] MEDS: DOCOSANOL 2 GM CREAM TP SCH ×5 (08:50→22:45)
--- NOTE | 2018-12-06 12:22 | HOSPPROG ---
Hospitalist Progress Note Assessment/Plan: E coli bacteremia - source unclear, possibly related to bioprosthetic valve. CT A/P reviewed with no source or abnormality. -ID following -BCX 11/28: Ecoli -BCX 11/30: NGTD -Zosyn changed to Rocephin, will need abx through Dec 08 through PIV Metabolic encephalopathy- resolved. CT head neg. Etiology may have been secondary to dehydration, hyponatremia or infection. -note h/o dementia, seems at baseline Elevated troponin- troponin peaked at 0.13. No evidence of ischemia on EKG. -Continue to monitor on telemetry Atrial fibrillation on Coumadin - Went into Afib 12/02. She likely is in and out of Afib -cont Bystolic -Cont Coumadin, pharmacy dosing Hypertension - losartan has been held -cont bystolic Hypothyroid- takes Synthroid 188 mcg. Continue while here. Mechanical aortic valve- on Coumadin. -resume lasix at lower dose and monitor (bmp today ok) Prophylaxis-SCDs Coumadin Nutrition-regular diet Code status-full code Dispo- - cont inpt, she has been medically clear for d/c to SNF since 12/04, but insurance has not authorized. Subjective: Pt feels well. No complaints. Objective: Vital Signs Temp Pulse Resp BP Pulse Ox 37.0 C 60 16 138/79 H 94 12/06/18 08:00 12/06/18 08:00 12/06/18 08:00 12/06/18 08:00 12/06/18 08:00 Microbiology 11/30/18 20:06 Blood Culture - Final Blood 11/30/18 20:06 Blood Culture - Final Blood Laboratory Results 12/02/18 05:15 12/06/18 04:22 12/05/18 12/06/18 12/07/18 05:59 05:59 05:59 Intake Total 1250 1250 Output Total 300 Balance 1250 1250 -300 PT 23.6 SEC (12.0-15.0) H 12/06/18 03:34 INR 2.10 (0.83-1.16) H 12/06/18 03:34 - Physical Exam Constitutional: no apparent distress Eyes: PERRL Ears, Nose, Mouth, Throat: moist mucous membranes Cardiovascular: regular rate and rhythym Respiratory: no respiratory distress, clear to auscultation Gastrointestinal: normoactive bowel sounds, soft, non-tender abdomen Skin: warm Musculoskeletal: full muscle strength Neurologic: AAOx3 Psychiatric: interacting appropriately ICD10 Worksheet Patient Problems: Problems Problem Status Onset Altered mental status Acute Elevated troponin Acute GI bleed Acute Warfarin-induced coagulopathy Acute Aortic valve replaced Chronic Atrial fibrillation Chronic
[2018-12-06] MEDS ORDERED: WARFARIN SODIUM 3 MG TAB PO ONE (20:00)
[2018-12-07 04:29] LABS: INR 1.82 (0.83-1.16); PROTIME(PATIENT) 21.2 SEC (12.0-15.0)
[2018-12-07] MEDS: LEVOTHYROXINE 88 MCG TAB PO SCH (05:36)
[2018-12-07] MEDS: DOCOSANOL 2 GM CREAM TP SCH ×5 (05:37→20:32)
[2018-12-07] MEDS: MEMANTINE HCL 5 MG TAB PO SCH ×2 (08:34→20:25)
[2018-12-07] MEDS: NEBIVOLOL HCL 5 MG TAB PO SCH (08:34)
[2018-12-07] MEDS: ESTRADIOL 0.5 MG TAB PO SCH (08:34)
[2018-12-07] MEDS: FUROSEMIDE 20 MG TAB PO SCH (08:34)
--- NOTE | 2018-12-07 12:43 | HOSPPROG ---
Hospitalist Progress Note Assessment/Plan: E coli bacteremia - source unclear, possibly related to bioprosthetic valve. CT A/P reviewed with no source or abnormality. -ID following -BCX 11/28: Ecoli -BCX 11/30: NGTD -Zosyn changed to Rocephin, will need abx through Dec 08 through PIV Metabolic encephalopathy- resolved. CT head neg. Etiology may have been secondary to dehydration, hyponatremia or infection. -note h/o dementia, seems at baseline Elevated troponin- troponin peaked at 0.13. No evidence of ischemia on EKG. -Continue to monitor on telemetry Atrial fibrillation on Coumadin - Went into Afib 12/02. She likely is in and out of Afib -cont Bystolic -Cont Coumadin, pharmacy dosing Hypertension - losartan has been held -cont bystolic Hypothyroid- takes Synthroid 188 mcg. Continue while here. Mechanical aortic valve- on Coumadin, goal INR 2.5-3.5, pharmacy dosing (INR low today) -resume lasix at lower dose and monitor (bmp ok) Prophylaxis-SCDs Coumadin Nutrition-regular diet Code status-full code Dispo- - cont inpt, she has been medically clear for d/c to SNF since 12/04, but insurance has not authorized. Subjective: Pt feels ok. Denies pain, no n/v. No fevers. She is weak, unsteady on her feet. Taking po well. Objective: Vital Signs Temp Pulse Resp BP Pulse Ox 36.3 C 75 10 L 136/81 H 97 12/07/18 10:57 12/07/18 10:57 12/07/18 10:57 12/07/18 10:57 12/07/18 10:57 Microbiology 11/30/18 20:06 Blood Culture - Final Blood 11/30/18 20:06 Blood Culture - Final Blood Laboratory Results 12/02/18 05:15 12/06/18 04:22 12/06/18 12/07/18 12/08/18 05:59 05:59 05:59 Intake Total 1250 2285 Output Total 900 Balance 1250 1385 PT 21.2 SEC (12.0-15.0) H 12/07/18 03:26 INR 1.82 (0.83-1.16) H 12/07/18 03:26 - Physical Exam Constitutional: no apparent distress Ears, Nose, Mouth, Throat: moist mucous membranes Cardiovascular: regular rate and rhythym Respiratory: no respiratory distress, clear to auscultation Gastrointestinal: normoactive bowel sounds, soft, non-tender abdomen Skin: warm Neurologic: AAOx3 Psychiatric: interacting appropriately ICD10 Worksheet Patient Problems: Problems Problem Status Onset Altered mental status Acute Elevated troponin Acute GI bleed Acute Warfarin-induced coagulopathy Acute Aortic valve replaced Chronic Atrial fibrillation Chronic
--- NOTE | 2018-12-07 16:19 | ASMTCMCOM ---
CM Note CM Note Notes: Pt's insurance declined to authorize SNF placement. Updated PT notes send in to insurance by [facility] for reauthorization, and message left for Martha DIEGO to arrange doc to doc, however neither CM nor hospitalist heard from Martha's MD. Pt has reference number for authorization in [employer] referral should Martha DIEGO need to be recontacted. Pt will have to discharge with [facility] only if authorization not obtained. Family is not able to provide 24/7 supervision, and pt lives in split level with steep steps. CM to follow. D/C Plan: SNF v HHC pending insurance authorization Date Signed: 12/07/2018 04:18 PM Electronically Signed By:Tabatha Lantigua
[2018-12-07] MEDS ORDERED: WARFARIN SODIUM 3 MG TAB PO ONE (20:00)
[2018-12-08 04:47] LABS: INR 1.97 (0.83-1.16); PROTIME(PATIENT) 22.5 SEC (12.0-15.0)
[2018-12-08] MEDS: LEVOTHYROXINE 100 MCG TAB PO SCH (05:25)
[2018-12-08] MEDS: DOCOSANOL 2 GM CREAM TP SCH ×3 (06:28→14:41)
[2018-12-08] MEDS: ESTRADIOL 0.5 MG TAB PO SCH (08:24)
[2018-12-08] MEDS: NEBIVOLOL HCL 5 MG TAB PO SCH (08:24)
[2018-12-08] MEDS: MEMANTINE HCL 5 MG TAB PO SCH (08:24)
[2018-12-08] MEDS: FUROSEMIDE 20 MG TAB PO SCH (08:24)
[2018-12-08 11:22] VITALS: BP 115/55
--- NOTE | 2018-12-08 12:49 | PDIAF ---
- Diagnosis Diagnosis: E coli bactermia Code Status: Full Code - Medication Management Deputy Coroner Investigator Antibiotics: ceftriaxone 1gm IV daily Alf Antibiotic Stop Date: 12/08/18 Discharge Medications: electronically signed and located in the Home Medication List. PICC Care - Routine: N/A (PIV per protocol) - Orders Services needed: Home Care, Registered Nurse, Certified Channel Account Manager, Master Channel Worker, Physical Therapy, Occupational Therapy, Speech Language Pathologist Home Care Face to Face: I certify that this patient was under my care and that I had the required [id number] encounter meeting the encounter requirements on the discharge day. My findings support the fact that the patient is homebound as defined in Home Care Face to Face Continued: CMS Chapter 7 Medicare Benefits Manual 30.1.1 , The condition of the patient is such that there exists a normal inability to leave home and consequently, leaving home would require a considerable and taxing effort. Isolation Type: None Diet Recommendation: no restrictions on diet - Follow Up Care Current Providers and Referrals: Patient,NotPresent [Unknown] - As per Instructions
--- NOTE | 2018-12-08 13:52 | GDS ---
DICTATED DATE OF ADMISSION: November 28, 2018. DISCHARGE DIAGNOSES: 1. 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 2. Metabolic encephalopathy in the setting of baseline dementia, improved. 3. Atrial fibrillation. 4. Chronic anticoagulation. 5. Hypertension. 6. Hypothyroidism. 7. Mechanical aortic valve, on anticoagulation. CONSULTANTS: Dr. Daniel Wolf, Infectious Disease. HISTORY OF DETAILS: Please see history and physical dated November 28, 2018. In brief, the patient i s an 78-year-old female with history of atrial fibrillation, on Coumadin with a mechanical aortic teri ve and early dementia, who presented to the emergency department with confusion. She had a leukocyto sis on arrival, but was otherwise hemodynamically stable. Blood cultures were drawn and she grew E c tita in 2 of 2 blood cultures. The source of her E coli bacteremia is not entirely clear. She underw ent abdomen CT pelvis which was unrevealing for source of infection. It is less likely to develop gr am-negative endocarditis, although it is possible this is due to the presence of her prosthetic valve . Her antibiotics were tailored to IV ceftriaxone. She completed her entire course of IV ceftriaxon e with her last dose on December 08, 2018. She has remained hemodynamically stable and afebrile with normalization of her white blood cell count. In addition, repeat blood cultures on November 30 remain negative. She was evaluated by our therapy services and was initially deemed appropriate for [facility] rehab. However, her insurance company denied this. We made several attempts to g et insurance to approve rehab, although it continued to be denied. After many more days in the [facility], it was felt by our therapy team that she had made significant progress and was safe for discharg e home with home health care services. DISPOSITION: Patient is discharged home with home health care services including RN, PT, OT, manager social, and Speech for ongoing cognition evaluation. DISCHARGE MEDICATIONS: Please see [facility] completed outpatient medication list. Changed medication s: Her Lasix dose is decreased from 60 mg daily to 20 mg daily. She will continue all other outpati ent medications as previously prescribed including Coumadin at her current dose, Namenda, nebivolol, losartan, and levothyroxine. She is also on Estrace and I recommend she revisit this with her primar y care physician, as this is relatively contraindicated in a patient of her age due to increased card iovascular risk. /[id number]/MODL
[2018-12-08] MEDS ORDERED: WARFARIN SODIUM 3 MG TAB PO ONE (14:15)
--- NOTE | 2018-12-08 14:40 | ASMTDCNOTE ---
Case Management Discharge Discharge Order Complete? Answers: Yes Patient to Obtain Answers: via Family Medications Transportation Arranged Answers: Family/Friends Faxed Final Orders Answers: Yes Agency/Facility Transfer Answers: Yes Report Printed & Faxed to Receiving Agency Family Notified Answers: Yes Discharge Comments Notes: CM has made multiple attempts to contact [place] to request a doc to doc without any response. BRANDIE spoke with [facility] who reported the only response they have recieved is that the patient is denied SNF. CM attempted to call pt's daughter to discuss plan and requested a call back and have not recieved a response. CM spoke with PT and according to PT she has improved and would be safe to be discharged home with homecare. CM spoke with pt and she requested home care be provided through [facility] and CM submit referral and discussed discharge plans. CM and MD spoke with daughter who reports that she has gotten various DME to ensure that pt will be safe at home, including shower chair and raised toilet. Pt continues to advcate that she wants to remain in her home and Pt's daughter is continuing to try to respect her autonomy. CM provided education that [facility] will have a SW following her and that the homecare team will evaluate her in the home and give recommendations regarding pt's safety. According to PT note today, PT recommends homecare PT with [facility] and family assistance. Pt and her daughter are aware of the recommendation and agreeable with discharge plan home. No other CM needs identified at this time. Date Signed: 12/08/2018 02:39 PM Electronically Signed By:FREDA Song
--- NOTE | 2018-12-08 14:51 | ASMTLACE ---
LACE Length of stay for Answers: 7-13 days current admission Acuity / Level of Answers: Yes Care: Did the patient have an inpatient admission? Comorbidities - select Answers: Dementia all that apply Other Notes: AFib; HTN; HLD # of Emergency department Answers: 1-2 visits in the last 6 months Score: 13 Date Signed: 12/08/2018 02:51 PM Electronically Signed By:FREDA Song
--- NOTE | 2018-12-08 14:56 | ASDISCHSUM ---
Discharge Information Plan Status:Home with Home Health Medically Cleared to Leave: Discharge Date: D/C Disposition:Home Health Service [facility] D/C Disposition:Home Health Service Projected Discharge Date:12/08/2018 11:00 AM Transportation at D/C:Family Discharge Delay Reason: Follow-Up Date:12/08/2018 11:00 AM Discharge Slot: Final Diagnosis: Placement Information Referral Type:*Fpc/SNF Referral ID:[id number] Provider Name: Address 1: Phone Number: Address 2: Fax Number: City: Selection Factors: State: Referral Type:*Home Health Care Services Referral ID:[id number] Provider Name:[facility] Address 1:[address] [address] Address 2: City:[place] Selection Factors: State:[place] Patient Contact Information Contact Name:EVAN Relationship:Son Address:[address] Work Phone: City:[place] Phone: State/Zip Code:[place] [address] Email: Financial Information Financial Class:BCOP Primary Plan Desc:MARTHA CARABALLO PPO Primary Plan Number:[id number] Secondary Plan Desc: Secondary Plan Number: Assessment Information LACE LACE Length of stay for Answers: 7-13 days current admission Acuity / Level of Answers: Yes Care: Did the patient have an inpatient admission? Comorbidities - select Answers: Dementia all that apply Other Notes: AFib; HTN; HLD # of Emergency department Answers: 1-2 visits in the last 6 months Score: 13 Date Signed: 12/08/2018 02:51 PM Electronically Signed By:FREDA Song [facility] CM Progress Note CM Note CM Note Notes: Pt is a 78 yo F presented with acute encephalopathy and leukocytosis. Labs found e-coli in urine. ID consulted and PT recommending SNF. OT eval pending. D/C needs TBD at this time. CM to follow. Plan: TBD likely, SNF. Date Signed: 11/29/2018 02:58 PM Electronically Signed By:FREDA Song [facility] BRANDIE Progress Note CM Note CM Note Notes: CM met with pt and her daughter, Ivy. CM provided education about pt's baseline and her concerns of being discharged home. Ivy reports she manages pt's medications and is her primary caregiver but doesn't live with her. She reports at baseline pt is independent but is getting more and more forgetful and doing "strange" things around the house. Ivy reports that she found medications that pt was hiding and not taking recently and is concerned about her returning to home. Ivy reports her mom has toured [facility] in the past but did not like the assisted living portion. CM provided education about other AL in the area and referred to list in [employer]. Ivy is going to tour more facilities. CM provided education on SNF and was agreeable to referral to [facility]. CM submit referral. Plan: [facility] SNF. Date Signed: 11/29/2018 04:14 PM Electronically Signed By:FREDA Song [facility] BRANDIE Progress Note CM Note CM Note Notes: CM spoke to Dr. Rubalcava regarding d/c POC. Pt is agreeable to going to SNF. CM notified [facility] to start getting auth. Pt will d/c with peripheral IV and continue ivabx until 12/08. [facility] is ok w/ this. CM met w/ pts daughter and daughter is onboard w/ d/c plan. CM to follow. Plan: [facility] Date Signed: 12/01/2018 03:10 PM Electronically Signed By:FREDA Aguilar [facility] BRANDIE Progress Note CM Note CM Note Notes: Pts case discussed in tx rounds. Updates sent to [facility]. [facility] is still in the process of getting auth from [employer]. Laxmi from called [employer] to see if they could expedite process and left a msg. CM left a msg with [employer] as well. The number is [phone]. CM to follow. Plan: [facility] SNF Date Signed: 12/03/2018 04:34 PM Electronically Signed By:FREDA Aguilar [facility] BRANDIE Progress Note CM Note CM Note Notes: Pt's insurance declined to authorize SNF placement. Updated PT notes send in to insurance by [facility] for reauthorization, and message left for Martha DIEGO to arrange doc to doc, however neither CM nor hospitalist heard from Martha's MD. [facility] should Martha DIEGO need to be recontacted. Pt will have to discharge with [facility] only if authorization not obtained. Family is not able to provide / supervision, and pt lives in split level with steep steps. CM to follow. D/C Plan: SNF v HHC pending insurance authorization Date Signed: 12/07/2018 04:18 PM Electronically Signed By:Tabatha Lantigua Case Management Discharge Plan Note Case Management Discharge Discharge Order Complete? Answers: Yes Patient to Obtain Answers: via Family Medications Transportation Arranged Answers: Family/Friends Faxed Final Orders Answers: Yes Agency/Facility Transfer Answers: Yes Report Printed & Faxed to Receiving Agency Family Notified Answers: Yes Discharge Comments Notes: BRANDIE has made multiple attempts to contact Martha to request a doc to doc without any response. BRANDIE spoke with [facility] who reported the only response they have recieved is that the patient is denied SNF. BRANDIE attempted to call pt's daughter to discuss plan and requested a call back and have not recieved a response. BRANDIE spoke with PT and according to PT she has improved and would be safe to be discharged home with homecare. BRANDIE spoke with pt and she requested home care be provided through [facility] and CM submit referral and discussed discharge plans. BRANDIE and MD spoke with daughter who reports that she has gotten various DME to ensure that pt will be safe at home, including shower chair and raised toilet. Pt continues to advcate that she wants to remain in her home and Pt's daughter is continuing to try to respect her autonomy. CM provided education that [facility] will have a SW following her and that the homecare team will evaluate her in the home and give recommendations regarding pt's safety. According to PT note today, PT recommends homecare PT with [facility] and family assistance. Pt and her daughter are aware of the recommendation and agreeable with discharge plan home. No other CM needs identified at this time. Date Signed: 12/08/2018 02:39 PM Electronically Signed By:FREDA Song Intervention Information Intervention Type:*DESAI-Signed Date of Service:11/29/2018 11:04 AM Patient Type:Observation Staff Member:Connie Ramírez Hours: Discipline: Severity: Comment:
== END 2018-12-08 16:31 | disposition home health service (06) | DRG 314 ==
LOC: EDUNIT# → EDBD → F2W 20:14 → OBSVTOIN 11-29 15:01
PROVIDERS: ADMIT Internal Medicine; ATTEND Internal Medicine
DX: T82.6XXA Infection and inflammatory reaction due to cardiac valve prosthesis, initial encounter (principal); R78.81 Bacteremia; B96.20 Unspecified Escherichia coli [E. coli] as the cause of diseases classified elsewhere; G93.41 Metabolic encephalopathy; I48.91 Unspecified atrial fibrillation; E87.1 Hypo-osmolality and hyponatremia; D72.829 Elevated white blood cell count, unspecified; E03.9 Hypothyroidism, unspecified; E78.5 Hyperlipidemia, unspecified; I10 Essential (primary) hypertension; F03.90 Unspecified dementia, unspecified severity, without behavioral disturbance, psychotic disturbance, mood disturbance, and anxiety; Z95.2 Presence of prosthetic heart valve; Z87.891 Personal history of nicotine dependence; Z79.01 Long term (current) use of anticoagulants
CPT/HCPCS: 84484-ER; 97116-GP; 97162-GP; 97165-GO; 97530-GO; 97530-GP; 97535-GO; G0378; G8978-GP-CJ; G8979-GP-CH; J0696; J2543; Q9967

== ENCOUNTER → 2019-05-05 | Outpatient (CLI) | payer OTHER | LOC: BMCIMAGING 10:00 ==